=== PATIENT | female | born 1965 | race Caucasian/White ===

== ENCOUNTER 2017-01-28 16:23 | Emergency (ER) | payer BC ==
[2017-01-28] MEDS ORDERED: Lidocaine 1% 30 ML SDV INJECT ONE (16:38)
--- NOTE | 2017-01-29 07:45 | ER ---
Date of Service: 01/28/2017 SUBJECTIVE: Damaris presents to the emergency room with complaints of laceration to her left index finger. The patient states that she was cutting up chicken for dinner when the knife slipped and she sustained a laceration to the pad of her right index finger. She states that her tetanus is up-to-date. She states that she denies any injury other than what is isolated again to the left index finger. PAST MEDICAL HISTORY: None. MEDICATIONS: None. ALLERGIES: NKDA. REVIEW OF SYSTEMS: Please see history of present illness. No injury again other than what is isolated to the left index finger. PHYSICAL EXAMINATION: General: This is a 51-year-old female patient. No acute distress. Vital Signs: Blood pressure is 179/103, heart rate is 98, temperature is 37.3, respiratory rate is 20, O2 saturation is 99%. Skin: Warm, pink, and dry. Musculoskeletal: The patient has approximately 4 cm laceration to the pad of the left index finger. It is quite shallow at the proximal portion extending down to the thicker portion of the tip of the finger. There is a small superficial artery that is pulsating. No trauma noted to the underlying structures underlying the laceration. Neurovascular: Circulation, sensation, and motor function are all within normal limits in the distal portion of the extremity. EMERGENCY ROOM COURSE: The finger was cleansed with Shur-Clens and normal saline. The patient's finger was anesthetized with a total of 3 mL of 1% lidocaine. A total of 5 interrupted 4-0 nylon sutures were used to close the laceration. Excellent wound approximation. Hemostasis was achieved. The patient tolerated this well. She remained stable in my care in the emergency room. ASSESSMENT: A 4 cm laceration to the tip of the left index finger. PLAN: The patient will be discharged. Tylenol or ibuprofen for discomfort. I would like her to follow up in the clinic in the next 10 to 14 days to have the sutures removed. Keep the area dry for 24 hours. Return if there is any redness, swelling, or discharge. All questions were answered. MWK: 01/29/2017 07:03:39 MODL: 01/29/2017 07:33:31 /[id number]
== END 2017-01-28 17:31 | disposition home or self-care (01) ==
LOC: VM.ED 16:23
DX: S61.211A Laceration without foreign body of left index finger without damage to nail, initial encounter (principal); Z23 Encounter for immunization; W26.0XXA Contact with knife, initial encounter; Y93.G3 Activity, cooking and baking; Y92.000 Kitchen of unspecified non-institutional (private) residence as the place of occurrence of the external cause
CPT/HCPCS: 12001; 12002; 99283